=== PATIENT | female | born 1985 | race Caucasian/White ===

== ENCOUNTER 2019-01-21 11:30 | Observation (INO) ==
[2019-01-21 12:48] LABS: Amphetamine Screen,Urine Negative ng/mL (Cutoff=1000); Barbiturate Screen,Urine Negative ng/mL (Cutoff=200); Benzodiazepines Screen,Urine Negative ng/mL (Cutoff=200); Cannabinoid Screen,Urine Negative ng/mL (Cutoff = 50); Cocaine Screen,Urine Negative ng/mL (Cutoff= 300); Creatinine,Urine 116 mg/dL; Opiate Screen,Urine Negative ng/mL (Cutoff=300); Phencyclidine Screen,Urine Negative ng/mL (Cutoff=25); Protein/Creatinine Ratio,Urine 0.11 mg/mg (0.00-0.20)
[2019-01-21 12:57] LABS: Alanine Aminotransferase 9 Units/L (7-52); Aspartate Amino Transferase 11 Units/L (13-39); BUN/Creatinine Ratio 13 (6-26); Blood Urea Nitrogen 8 mg/dL (6-20); Lactate Dehydrogenase 159 Units/L (140-271); Uric Acid 5.5 mg/dL (2.3-7.6); eGFR For African Americans > 60 (> 60); eGFR For Non-African Americans > 60 (> 60)
[2019-01-21 13:13] LABS: Basophils % 0.1 %; Eosinophils % 0.1 %; Hemoglobin 10.8 g/dL (11.5-15.4); Immature Granulocytes % 0.5 % (0-4); Lymphocytes % 16.6 %; Mean Corpuscular HGB Conc 31.8 g/dL (31.6-35.5); Mean Corpuscular Hemoglobin 27.8 pg (28.0-33.3); Mean Corpuscular Volume 87.4 fL (83.0-100.0); Mean Platelet Volume 10.6 fL (9.4-12.4); Monocytes % 6.7 %; Platelet Count 202 K/mcL (140-400); Red Blood Count 3.89 M/mcL (3.82-4.97); Red Cell Distribution Width 15.3 % (11.5-14.5); White Blood Count 9.7 K/mcL (4.3-11.1)
[2019-01-21 13:14] LABS: Lymphocytes # 1.6 K/mcL (0.6-4.6); Monocytes # 0.7 K/mcL (0.0-1.3); Neutrophils # 7.4 K/mcL (1.6-8.9)
--- NOTE | 2019-01-21 14:08 | Discharge Summary ---
Date of Encounter: 01/21/19 Time of Encounter: 14:08 - Discharge Diagnosis (1) 31 weeks gestation of Priority: Primary Status: Acute Comments: Admit observation for elevated blood pressure in (2) NST (non-stress test) reactive Priority: Secondary Status: Acute Comments: FHR 130 bpm, moderate variability, +15 x 15 accelerations, no decelerations. (3) Hypertension affecting in third trimester Priority: Secondary Status: Acute Comments: Slightly elevated blood pressures while on the monitor here. Highest systolic 153, highest diastolic 101. All pre-labs within normal limits today. Patient is sent home with a 24 hour urine. Will start in the morning and return it to the office on Monday. She is scheduled for a biophysical profile with growth scan on Monday. She is to begin biweekly NSTs starting at 32 weeks gestation. Plan of care made in collaboration with Dr. Sarah. - Discharge Medications Prescriptions: No Action Prenata Chewable Tablet 1 tab PO DAILY Ferrous Sulfate [Iron] 325 mg PO DAILY Home Medications: Ferrous Sulfate [Iron] 325 mg PO DAILY 01/21/19 [History] Prenata Chewable Tablet 1 tab PO DAILY 01/21/19 [History] Allergies/Adverse Reactions: Allergy/AdvReac Type Severity Reaction Status Date / Time No Known Allergies Allergy Verified 01/21/19 12:02 Data Procedures and tests throughout hospitalization: Laboratory Tests 01/21/19 01/21/19 01/21/19 12:15 12:15 12:15 WBC 9.7 RBC 3.89 Hgb 10.8 L Hct 34.0 L MCV 87.4 MCH 27.8 L MCHC 31.8 RDW 15.3 H Plt Count 202 MPV 10.6 Immature Gran % 0.5 Seg Neutrophils % 76.0 Lymphocytes % 16.6 Monocytes % 6.7 Eosinophils % 0.1 Basophils % 0.1 Neutrophils # 7.4 Lymphocytes # 1.6 Monocytes # 0.7 Eosinophils # 0.0 Basophils # 0.0 BUN 8 Creatinine 0.61 Est GFR ( Amer) > 60 Est GFR (Non-Af Amer) > 60 BUN/Creatinine Ratio 13 Uric Acid 5.5 AST 11 L ALT 9 Lactate Dehydrogenase 159 Urine Creatinine 116 Protein/Creatinin Ratio 0.11 Urine Total Protein 13 Urine Opiates Screen Negative Ur Buprenorphine Scrn Negative Ur Barbiturates Screen Negative Ur Phencyclidine Scrn Negative Ur Amphetamines Screen Negative U Benzodiazepines Scrn Negative Urine Cocaine Screen Negative U Marijuana (THC) Screen Negative Ur Drug Screen Interp See Below Labs on day of discharge: Labs from last 24 hours 01/21/19 01/21/19 01/21/19 12:15 12:15 12:15 WBC 9.7 RBC 3.89 Hgb 10.8 L Hct 34.0 L MCV 87.4 MCH 27.8 L MCHC 31.8 RDW 15.3 H Plt Count 202 MPV 10.6 Immature Gran % 0.5 Seg Neutrophils % 76.0 Lymphocytes % 16.6 Monocytes % 6.7 Eosinophils % 0.1 Basophils % 0.1 Neutrophils # 7.4 Lymphocytes # 1.6 Monocytes # 0.7 Eosinophils # 0.0 Basophils # 0.0 BUN 8 Creatinine 0.61 Est GFR ( Amer) > 60 Est GFR (Non-Af Amer) > 60 BUN/Creatinine Ratio 13 Uric Acid 5.5 AST 11 L ALT 9 Lactate Dehydrogenase 159 Urine Creatinine 116 Protein/Creatinin Ratio 0.11 Urine Total Protein 13 Urine Opiates Screen Negative Ur Buprenorphine Scrn Negative Ur Barbiturates Screen Negative Ur Phencyclidine Scrn Negative Ur Amphetamines Screen Negative U Benzodiazepines Scrn Negative Urine Cocaine Screen Negative U Marijuana (THC) Screen Negative Ur Drug Screen Interp See Below Date of admission: 01/21/19 11:30 Primary care physician: Elizabeth Chamorro CNP Discharging clinician: Amber Bojorquez Anticipated date of discharge: 01/21/19 - Patient Status Disposition: Home, Self-Care Condition: Good Functional capacity at discharge: independent ambulation Overall status at discharge: patient is progressing back to baseline - Discharge Instructions Follow Up With: Elizabeth Chamorro CNP [Primary Care Provider] - Alina Monsivais CNM [Advanced Practice Nurse] - - Diet and Activity Activity: resume usual activities as tolerated Diet: regular diet Hospital Course ORAL AND MAXILLOFACIAL SURGERY RESIDENT Hospital course: Patient arrived today from the office for elevated blood pressures and intermittent headache and visual disturbance. Today she reports the headache has subsided and has only had intermittent visual disturbances and denies any at this time. She reports positive movement, denies vaginal bleeding and fluid leakage. She denies any preeclampsia with her previous pregnancies. Lab work was drawn and all returned within normal limits and the PC ratio of 0.11. Slightly elevated blood pressures while here. Reviewed lab work and blood pressures with Dr. Sarah and plan of care to send patient home with 24-hour urine and she is to return to the office on Monday for a biophysical profile. She is to begin biweekly NSTs at 32 weeks gestation. Time Attestation: Total time spent providing and/or coordinating discharge services: Time Spent: Less than 30 minutes Exam - Constitutional General appearance IM: A&O X 3, no acute distress, answers questions appropriately - Respiratory Respiratory exam: Present: CTAB. Absent: respiratory distress - Cardiovascular Cardiovascular exam IM: Present: RRR, +S1, +S2. Absent: irregular rhythm - GI/Abdominal GI/Abdominal exam IM: normal bowel sounds, soft Incision: normal, dry, intact - Rectal Rectal exam: deferred - External exam: normal external exam - Extremities Exam Extremities exam IM: Present: full ROM, normal capillary refill, normal inspection. Absent: calf tenderness - Neurological Exam Neurological exam: alert, normal gait, oriented X3 - VTE Reasons for not Prescribing Prophylaxis: Treatment not Indicated - Low risk for VTE
== END 2019-01-21 14:53 | disposition home or self-care (01) ==
LOC: 1NENULAB
PROVIDERS: ADMIT Registered Nurse; ATTEND Registered Nurse

== ENCOUNTER → 2019-02-04 17:35 | Observation (INO) ==
[2019-02-04 11:37] LABS: Basophils % 0.2 %; Eosinophils % 0.1 %; Hematocrit 31.4 % (35.3-44.9); Hemoglobin 10.1 g/dL (11.5-15.4); Immature Granulocytes % 1.3 % (0-4); Lymphocytes % 18.2 %; Mean Corpuscular HGB Conc 32.2 g/dL (31.6-35.5); Mean Corpuscular Hemoglobin 28.1 pg (28.0-33.3); Mean Corpuscular Volume 87.5 fL (83.0-100.0); Mean Platelet Volume 10.7 fL (9.4-12.4); Neutrophils # 7.8 K/mcL (1.6-8.9); Nucleated Red Blood Cells 0.3 /100 WBC (0); Platelet Count 218 K/mcL (140-400); Red Blood Count 3.59 M/mcL (3.82-4.97); Red Cell Distribution Width 15.9 % (11.5-14.5); Segmented Neutrophils % 71.2 %; White Blood Count 10.9 K/mcL (4.3-11.1)
[2019-02-04 11:56] LABS: Amphetamine Screen,Urine Negative ng/mL (Cutoff=1000); Barbiturate Screen,Urine Negative ng/mL (Cutoff=200); Benzodiazepines Screen,Urine Negative ng/mL (Cutoff=200); Cannabinoid Screen,Urine Negative ng/mL (Cutoff = 50); Cocaine Screen,Urine Negative ng/mL (Cutoff= 300); Creatinine,Urine 131 mg/dL; Opiate Screen,Urine Negative ng/mL (Cutoff=300); Phencyclidine Screen,Urine Negative ng/mL (Cutoff=25); Protein/Creatinine Ratio,Urine 0.35 mg/mg (0.00-0.20)
[2019-02-04 11:58] LABS: Alanine Aminotransferase 14 Units/L (7-52); Aspartate Amino Transferase 15 Units/L (13-39); BUN/Creatinine Ratio 17 (6-26); Blood Urea Nitrogen 14 mg/dL (6-20); Lactate Dehydrogenase 180 Units/L (140-271); Uric Acid 5.4 mg/dL (2.3-7.6); eGFR For African Americans > 60 (> 60); eGFR For Non-African Americans > 60 (> 60)
--- NOTE | 2019-02-04 13:32 | OB/GYN History & Physical ---
Date of Encounter: 02/04/19 Time of Encounter: 13:28 Assessment and Plan (1) and not yet delivered in third trimester Current visit: Yes Status: Acute (2) 33 weeks gestation of Current visit: Yes Status: Acute (3) Pre-eclampsia added to pre-existing hypertension Current visit: Yes Status: Acute Methyldopa 500 mg 3 times a day will be started and we will start a 24 urine. We will try to encourage patient to stay so we can follow her closely History of Present Illness HPI: Ms. Mcconnell is a 33 year old female 3 para 2 at 33-0/7 weeks who was sent to labor and delivery from the office secondary to elevated blood pressures. Patient was seen on labor and delivery last week after being sent over for elevated blood pressures at that time she had been on labetalol 100 mg twice a day there was the patient for approximately 36 hours did PIH labs and 24-hour urine and increased her labetalol to 200 mg 3 times a day. Her blood pressure in the office today was 172/110 180/110. She is asymptomatic is not complaining of any headaches but vision seen spots denies any significant edema. Patient did receive 20 mg labetalol 2 did not touch her blood pressure continued remain elevated here in labor and delivery we did go ahead and give h er 10 mg of hydralazine IV push 1 this did bring her blood pressures down in a more normal range systolics in the 160s diastolics in the low 80s. Patient still asymptomatic at this time. Patient is anxious really does not want to be here at the hospital. She did have a 25 urine when she was here last time 24- hour protein was over 300. Her protein creatinine ratio today is 0.35 have recommended repeating the 24 urine. Patient really was wanting to go home if at all possible. I talked about possibly spend the night did advise we will see how blood pressure does through the afternoon if stable on methyldopa which we have given her we can possibly do that. Patient did have steroids last week and she was here. Past Med Surg Social Fam HX - Past Medical History Source: patient, old records reviewed Medical history: no medical history Psychiatric history: no psych history - Past Surgical History Surgical History: other Additional surgical history: wisdom teeth removed - Social History Smoking Status: Never smoker Smokeless Tobacco Status: No Alcohol use: none Drug use: none Occupational status: employed Current living situation: Home - Independent Activity Level: Independent ambulation Recent Out of Country Travel Within the Last 8 Weeks: No Exposure or Possible Exposure to Illness During Travel: No - Family History Father Living Status: Still Living Hx Family Cardiac Disorders: Yes (HTN, High Cholesterol) Hx Family Respiratory Disorders: No Hx Family Cancer: No Hx Family GI Disorders: No Hx Family Endocrine Disorder: No Hx Family Neuromuscular Disorders: No Hx Family Neurologic Disorders: No Hx Family HEENT Disorders: No Hx Family Autoimmune Disorders: No - Additional Family History Additional family history: Family history noncontributory at this time Obstetrical History - Pregnancies : 3 Para: 2 Livin Medications and Allergies Ferrous Sulfate [Iron] 325 mg PO DAILY 01/21/19 [History] Prenata Chewable Tablet 1 tab PO DAILY 01/21/19 [History] Labetalol [Trandate] 200 mg PO TID 01/31/19 [History] Allergy/AdvReac Type Severity Reaction Status Date / Time No Known Allergies Allergy Verified 02/04/19 11:21 Review of System OB All systems PM: reviewed and no additional remarkable complaints except as stated Exam - Constitutional Constitutional: well developed, well nourished, no acute distress, average body habitus, obese - HEENT HEENT: EOMI, PERRL, Mucus Membranes Moist - Neck Neck exam: full ROM - Lungs Respiratory exam: CTAB - Cardiovascular Cardiovascular exam: RRR - Abdomen Abdomen: Present: bowel sounds normal, gravid ( heart tones 140s reassuring no contractions) - Extremities Extremities exam: pedal edema Deep Tendon Reflex Grade: 2+ Normal - Vagina Vagina: Present: normal moisture Results Result Diagrams: 02/04/19 11:18 02/04/19 11:18 Abnormal lab results RBC 3.59 M/mcL (3.82-4.97) L 02/04/19 11:18 Hgb 10.1 g/dL (11.5-15.4) L 02/04/19 11:18 Hct 31.4 % (35.3-44.9) L 02/04/19 11:18 RDW 15.9 % (11.5-14.5) H 02/04/19 11:18 Nucleated RBCs/100 WBC 0.3 /100 WBC (0) H 02/04/19 11:18 Protein/Creatinin Ratio 0.35 mg/mg (0.00-0.20) H 02/04/19 11:18 Urine Total Protein 46 mg/dL (1-14) H 02/04/19 11:18 All other labs normal. - VTE Reasons for not Prescribing Prophylaxis: Treatment not Indicated - Low risk for VTE
--- NOTE | 2019-02-04 17:16 | OB/GYN Progress Note ---
Date of Encounter: 02/04/19 Time of Encounter: 17:13 - Assessment and Plan (1) and not yet delivered in third trimester Current Visit: Yes Status: Acute (2) 33 weeks gestation of Current Visit: Yes Status: Acute (3) Pre-eclampsia added to pre-existing hypertension Current Visit: Yes Status: Acute Methyldopa 500 mg 3 times a day will continue 24 urine and will come to office tomorrow for BP check and to drop off her 24 hr urine Subjective - Subjective Interval history: Patient asymptomatic no complaint of headaches blurred vision or scotoma. Patient is wanting to go home does not want to stay overnight. Try to encourage her to stay to finish the 24 urine cervical monitor she states should be more comfortable at home. Patient was advised we will send her home with methyldopa 500 mg 3 times a day and she will follow up in the office tomorrow for blood pressure check and to drop off her 24 hr urine. She is aware blood pressure is elevated, she will have to come back to labor and delivery Objective - Vital Signs Vital Signs: Intake and Output 02/04/19 02/04/19 02/04/19 07:59 15:59 23:59 Other: Weight 126.5 kg Patient Weight 02/04/19 23:59 Weight 126.5 kg - Exam FHR: category 1 FHR comments: 140's reassuring no contractions seen Abdomen: Present: normal appearance, soft, gravid - Labs Labs: Abnormal lab results RBC 3.59 M/mcL (3.82-4.97) L 02/04/19 11:18 Hgb 10.1 g/dL (11.5-15.4) L 02/04/19 11:18 Hct 31.4 % (35.3-44.9) L 02/04/19 11:18 RDW 15.9 % (11.5-14.5) H 02/04/19 11:18 Nucleated RBCs/100 WBC 0.3 /100 WBC (0) H 02/04/19 11:18 Protein/Creatinin Ratio 0.35 mg/mg (0.00-0.20) H 02/04/19 11:18 Urine Total Protein 46 mg/dL (1-14) H 02/04/19 11:18
[~2019-02-04 17:35] MED LIST: *HR* Labetalol 20 MG/4 ML SYRINGE IVP ONE; *HR* Labetalol 20 MG/4 ML SYRINGE IVP STA
== END | disposition home or self-care (01) ==
LOC: 1NENULAB
PROVIDERS: ADMIT Advanced Practice Midwife; ATTEND Advanced Practice Midwife

== ENCOUNTER 2019-02-07 10:28 | Inpatient (IN) ==
[2019-02-07 11:08] LABS: Basophils % 0.2 %; Eosinophils % 0.2 %; Hematocrit 31.8 % (35.3-44.9); Hemoglobin 10.5 g/dL (11.5-15.4); Immature Granulocytes % 0.6 % (0-4); Lymphocytes # 1.6 K/mcL (0.6-4.6); Lymphocytes % 15.6 %; Mean Corpuscular Hemoglobin 28.2 pg (28.0-33.3); Mean Corpuscular Volume 85.3 fL (83.0-100.0); Mean Platelet Volume 10.1 fL (9.4-12.4); Monocytes # 0.6 K/mcL (0.0-1.3); Monocytes % 6.1 %; Neutrophils # 7.7 K/mcL (1.6-8.9); Platelet Count 200 K/mcL (140-400); Red Blood Count 3.73 M/mcL (3.82-4.97); Red Cell Distribution Width 15.4 % (11.5-14.5); Segmented Neutrophils % 77.3 %
[2019-02-07 11:27] LABS: Alanine Aminotransferase 10 Units/L (7-52); Aspartate Amino Transferase 10 Units/L (13-39); BUN/Creatinine Ratio 13 (6-26); Blood Urea Nitrogen 12 mg/dL (6-20); Lactate Dehydrogenase 175 Units/L (140-271); Uric Acid 5.7 mg/dL (2.3-7.6); eGFR For African Americans > 60 (> 60); eGFR For Non-African Americans > 60 (> 60)
[2019-02-07] MEDS ORDERED: Naloxone 0.4 MG/ML INJ IVP PRN (11:47)
[2019-02-07] MEDS ORDERED: Metoclopramide 10 MG/2 ML VIAL IVP PRN ×2 (11:47→22:57)
[2019-02-07] MEDS ORDERED: Famotidine 20 MG/2 ML VIAL IVP PRN (11:47)
[2019-02-07] MEDS ORDERED: *HR* Nalbuphine 10 MG/ML AMPUL IVP PRN (11:47)
[2019-02-07] MEDS ORDERED: Calcium Gluconate 1,000 MG/10 ML VIAL IV PRN (11:47)
[2019-02-07] MEDS ORDERED: Ondansetron 4 MG/2 ML VIAL IVP PRN ×2 (11:47→22:57)
[2019-02-07] MEDS ORDERED: miSOPROStoL 25 MCG TABLET VG PRN (11:47)
[2019-02-07] MEDS ORDERED: Lidocaine 1% 20 ML MDV INFILT PRN (11:47)
[2019-02-07] MEDS ORDERED: *HR* Labetalol 20 MG/4 ML SYRINGE IVP PRN (11:47)
[2019-02-07] MEDS ORDERED: Penicillin G Potassium 5,000,000 UNIT in 0.9 % Sodium Chloride Mini Bag 100 ML IVPB ONE (11:53)
[2019-02-07] MEDS ORDERED: Ringers Solution, Lactated 1,000 ML IVC SCH (12:00)
[2019-02-07] MEDS ORDERED: Magnesium Sulf 20 gm/SW 500mL 20 GM/500 ML IV.SOLN IVC SCH (12:00)
[2019-02-07 12:08] LABS: Amphetamine Screen,Urine Negative ng/mL (Cutoff=1000); Barbiturate Screen,Urine Negative ng/mL (Cutoff=200); Benzodiazepines Screen,Urine Negative ng/mL (Cutoff=200); Cannabinoid Screen,Urine Negative ng/mL (Cutoff = 50); Cocaine Screen,Urine Negative ng/mL (Cutoff= 300); Creatinine,Urine 180 mg/dL; Opiate Screen,Urine Negative ng/mL (Cutoff=300); Phencyclidine Screen,Urine Negative ng/mL (Cutoff=25); Protein/Creatinine Ratio,Urine 0.68 mg/mg (0.00-0.20)
[2019-02-07] MEDS: *HR* Labetalol 20 MG/4 ML SYRINGE IVP STA ×3 (12:24→13:45)
[2019-02-07] MEDS ORDERED: *HR* Labetalol 20 MG/4 ML SYRINGE IVP ONE (13:40)
[2019-02-07] MEDS ORDERED: Penicillin G Potassium 2,500,000 UNIT in 0.9 % Sodium Chloride 100 ML IVPB SCH (16:00)
[2019-02-07] MEDS ORDERED: Oxytocin 20 units/ LR 1000 mL 20 UNIT/1,000 ML BAG IVC SCH ×2 (17:30→22:57)
[2019-02-07] MEDS ORDERED: Epidural Premix (fent/bupiv) 110 ML EP SCH (17:30)
[2019-02-07] MEDS ORDERED: Epidural Premix (fent/bupiv) 110 ML EP ONE (17:36)
[2019-02-07] MEDS ORDERED: Ondansetron 4 MG/2 ML VIAL ONE (20:18)
[2019-02-07] MEDS ORDERED: Dexamethasone 4 MG/ML VIAL ONE (20:18)
[2019-02-07] MEDS ORDERED: Ketorolac 30 MG/ML VIAL ONE (20:20)
[2019-02-07] MEDS ORDERED: *HR* Morphine Sulfate/PF 10 MG/10 ML AMPUL ONE (20:21)
[2019-02-07] MEDS ORDERED: *HR* Oxytocin 10 UNIT/ML VIAL IM ONE (20:22)
[2019-02-07] MEDS ORDERED: Ringers Solution, Lactated 1,000 ML ONE (20:22)
[2019-02-07] MEDS ORDERED: *HR* FentaNYL (PF) 100 MCG/2 ML VIAL ONE (20:25)
[2019-02-07] MEDS ORDERED: *HR* HYDROmorphone (PF) 1 MG/ML SYRINGE IVP PRN (21:17)
[2019-02-07] MEDS ORDERED: Acetaminophen IV 1,000 MG/100 ML INFUS..BTL IVPB ONE (21:18)
[2019-02-07] MEDS ORDERED: Simethicone 80 MG TAB.CHEW PO PRN (22:57)
[2019-02-07] MEDS ORDERED: Sennosides 8.6 MG TABLET PO PRN (22:57)
[2019-02-08] MEDS: Magnesium Sulf 20 gm/SW 500mL 20 GM/500 ML IV.SOLN IVC SCH ×2 (00:41→10:58)
[2019-02-08] MEDS: cefOXitin 2,000 MG in Water for inj. (sterile) 20 ML IVP SCH ×3 (00:43→15:58)
[2019-02-08] MEDS: Ibuprofen 600 MG TABLET PO PRN ×4 (00:44→23:46)
[2019-02-08] MEDS ORDERED: Calcium Gluconate 1,000 MG/10 ML VIAL IV PRN (01:04)
[2019-02-08] MEDS: *HR* OxyCODONE/APAP 5/325 TABLET PO PRN ×4 (03:25→21:41)
[2019-02-08] MEDS: Prenatal Vit/FA 1 EACH TABLET PO SCH (08:48)
[2019-02-08] MEDS ORDERED: Rho Immune Globulin 1,500 UNIT SYRINGE IM ONE ×2 (12:25→14:33)
[2019-02-09] MEDS: Ibuprofen 600 MG TABLET PO PRN ×2 (09:07→18:00)
[2019-02-09] MEDS: Prenatal Vit/FA 1 EACH TABLET PO SCH (09:07)
[2019-02-09] MEDS: *HR* OxyCODONE/APAP 5/325 TABLET PO PRN ×2 (10:18→23:37)
[2019-02-10] MEDS: Ibuprofen 600 MG TABLET PO PRN (09:07)
[2019-02-10] MEDS: Prenatal Vit/FA 1 EACH TABLET PO SCH (09:07)
[2019-02-10] MEDS ORDERED: NIFEdipine XL (24 HR) 30 MG TAB.ER.24 PO SCH (10:00)
[2019-02-10] MEDS ORDERED: NIFEdipine XL (24 HR) 30 MG TAB.ER.24 PO STA (20:11)
[2019-02-10] MEDS ORDERED: *HR* LORazepam 1 MG TABLET PO ONE (22:33)
[2019-02-11] MEDS: Prenatal Vit/FA 1 EACH TABLET PO SCH (08:55)
[2019-02-11] MEDS: Ibuprofen 600 MG TABLET PO PRN (08:56)
[2019-02-11] MEDS ORDERED: *HR* Metoprolol 5 MG/5 ML VIAL IVP PRN (18:38)
[2019-02-11] MEDS: Lisinopril 20 MG TABLET PO SCH (19:42)
[2019-02-11] MEDS: hydroCHLOROthiazide 25 MG TABLET PO SCH (19:42)
[2019-02-12] MEDS: Lisinopril 20 MG TABLET PO SCH (08:04)
[2019-02-12] MEDS: hydroCHLOROthiazide 25 MG TABLET PO SCH (08:04)
[2019-02-12] MEDS: Prenatal Vit/FA 1 EACH TABLET PO SCH (08:04)
[2019-02-12 10:28] LABS: Basophils % 0.2 %; Eosinophils % 0.2 %; Hematocrit 31.3 % (35.3-44.9); Hemoglobin 9.7 g/dL (11.5-15.4); Immature Granulocytes % 2.3 % (0-4); Lymphocytes # 1.3 K/mcL (0.6-4.6); Lymphocytes % 12.1 %; Mean Corpuscular Volume 90.2 fL (83.0-100.0); Mean Platelet Volume 9.6 fL (9.4-12.4); Monocytes # 0.6 K/mcL (0.0-1.3); Monocytes % 5.9 %; Neutrophils # 8.4 K/mcL (1.6-8.9); Platelet Count 241 K/mcL (140-400); Red Blood Count 3.47 M/mcL (3.82-4.97); Segmented Neutrophils % 79.3 %; White Blood Count 10.6 K/mcL (4.3-11.1)
[2019-02-12 10:48] LABS: BUN/Creatinine Ratio 14 (6-26); Blood Urea Nitrogen 11 mg/dL (6-20); Calcium 9.9 mg/dL (8.6-10.3); Carbon Dioxide 26 mEq/L (23-29); Chloride 98 mEq/L (98-107); Glucose 89 mg/dL (70-105); Magnesium 1.9 mg/dL (1.6-2.6); Osmolality,Calculated 275 (280-300); Potassium 4.3 mEq/L (3.5-5.1); Sodium 133 mEq/L (136-145); eGFR For African Americans > 60 (> 60); eGFR For Non-African Americans > 60 (> 60)
[2019-02-12] MEDS: Metoprolol XL (24 HR) Succ 50 MG TAB.ER.24H PO SCH (14:24)
[2019-02-12] MEDS: Ibuprofen 600 MG TABLET PO PRN (21:19)
[2019-02-13 07:46] LABS: Basophils % 0.3 %; Eosinophils % 0.3 %; Hematocrit 30.4 % (35.3-44.9); Hemoglobin 9.3 g/dL (11.5-15.4); Immature Granulocytes % 1.8 % (0-4); Lymphocytes # 1.5 K/mcL (0.6-4.6); Lymphocytes % 16.8 %; Mean Corpuscular HGB Conc 30.6 g/dL (31.6-35.5); Mean Corpuscular Hemoglobin 27.5 pg (28.0-33.3); Mean Corpuscular Volume 89.9 fL (83.0-100.0); Mean Platelet Volume 9.6 fL (9.4-12.4); Monocytes # 0.8 K/mcL (0.0-1.3); Monocytes % 9.1 %; Neutrophils # 6.3 K/mcL (1.6-8.9); Platelet Count 234 K/mcL (140-400); Red Blood Count 3.38 M/mcL (3.82-4.97); Red Cell Distribution Width 17.1 % (11.5-14.5); Segmented Neutrophils % 71.7 %; White Blood Count 8.8 K/mcL (4.3-11.1)
[2019-02-13 08:03] LABS: BUN/Creatinine Ratio 19 (6-26); Blood Urea Nitrogen 16 mg/dL (6-20); Carbon Dioxide 27 mEq/L (23-29); Chloride 97 mEq/L (98-107); Potassium 4.1 mEq/L (3.5-5.1); Sodium 135 mEq/L (136-145)
[2019-02-13 08:04] VITALS: BP 132/96
[2019-02-13 08:04] LABS: Calcium 10.1 mg/dL (8.6-10.3); Glucose 101 mg/dL (70-105); Magnesium 1.9 mg/dL (1.6-2.6); Osmolality,Calculated 281 (280-300); eGFR For African Americans > 60 (> 60); eGFR For Non-African Americans > 60 (> 60)
[2019-02-13] MEDS: hydroCHLOROthiazide 25 MG TABLET PO SCH (08:23)
[2019-02-13] MEDS: Lisinopril 20 MG TABLET PO SCH (08:25)
[2019-02-13] MEDS: Prenatal Vit/FA 1 EACH TABLET PO SCH (08:25)
[2019-02-13] MEDS: Metoprolol XL (24 HR) Succ 50 MG TAB.ER.24H PO SCH (09:52)
== END 2019-02-13 13:30 | disposition home or self-care (01) | DRG 788 ==
LOC: 1NENULAB → OBSVTOIN 10:28 → 1NENUOBS 02-08 00:13
PROVIDERS: ADMIT Advanced Practice Midwife; ATTEND Advanced Practice Midwife